=== PATIENT | male | born 1955 | race Caucasian/White ===

== ENCOUNTER 2019-02-25 10:50 | Day surgery (SDC) | payer OTHER ==
[~2019-02-25] VITALS: Ht 177.8 cm; Wt 130.0 kg
[~2019-02-25 10:50] MED LIST: ALBU90OI61 INH; ASPI81CH PO; ATOR20 PO; Acetaminophen325 M1 PO; BASAGLAR K100 UNIT/1 SC; BUDE6HFA INH; CALCIUM CARBON260 MG PO; COMBIVENT RESPIM4 GM INH; DERMAFUNGAL TOP; ELIQUIS5 MG PO; ENOX40I SC; FLUC100 PO; FURO40 PO; GAVILAX17 GM PO; HYDPAM50 PO; HYDR1TAB94 PO; Humulin N100 UNIT/1 SC; LEVSOD50 PO; Loratadine10 MG PO; MAGOXI400 PO; METO25ER PO; MULTI-VITAMIN-1 EACH PO; Novolog100 UNIT/2 INJ; POTCHL20ER PO; PREG50 PO; SIME80CH PO; Senna8.6 MG PO; Spironolactone100 MG PO; TAMS.4ER PO; TIOT18 INH; VITAMIN B PO; Ventolin Soln3 ML INH; Vitamin D2000 UNIT PO
== END 2019-02-25 13:37 | disposition home or self-care (01) ==
LOC: ORSCSDS 10:50
PROVIDERS: Internal Medicine Gastroenterology
PROC: 0W3P8ZZ Control Bleeding in Gastrointestinal Tract, Via Natural or Artificial Opening Endoscopic (ICD-10-PCS; principal; 2019-02-25 12:45)
DX: D62 Acute posthemorrhagic anemia (principal); K92.1 Melena; Q27.33 Arteriovenous malformation of digestive system vessel; I10 Essential (primary) hypertension; J44.9 Chronic obstructive pulmonary disease, unspecified; I48.91 Unspecified atrial fibrillation; Z79.01 Long term (current) use of anticoagulants; G47.33 Obstructive sleep apnea (adult) (pediatric); Z87.891 Personal history of nicotine dependence; E11.9 Type 2 diabetes mellitus without complications; K21.9 Gastro-esophageal reflux disease without esophagitis; Z99.81 Dependence on supplemental oxygen; E66.01 Morbid (severe) obesity due to excess calories; Z68.41 Body mass index [BMI] 40.0-44.9, adult; Z79.899 Other long term (current) drug therapy
CPT/HCPCS: 82947; J2704; J7120

== ENCOUNTER 2022-06-09 08:42 | Day surgery (SDC) | payer OTHER ==
[~2022-06-09] VITALS: Ht 177.8 cm; Wt 108.7 kg
[2022-06-09] MEDS ORDERED: TAMS.4ER (09:12)
[2022-06-09] MEDS ORDERED: METF500 (09:12)
[2022-06-09] MEDS ORDERED: FERSU90EL (09:12)
[2022-06-09] MEDS ORDERED: ALOGLIPTIN6.25 M1 (09:13)
[2022-06-09] MEDS ORDERED: METO25ER (09:13)
[2022-06-09] MEDS ORDERED: LORA1SY (09:13)
== END 2022-06-09 11:11 | disposition home or self-care (01) ==
LOC: ORSCSDS 08:42
PROVIDERS: Internal Medicine Gastroenterology
PROC: 0D5A8ZZ Destruction of Jejunum, Via Natural or Artificial Opening Endoscopic (ICD-10-PCS; principal; 2022-06-09 10:00)
PROC: 0DB78ZX Excision of Stomach, Pylorus, Via Natural or Artificial Opening Endoscopic, Diagnostic (ICD-10-PCS; principal; 2022-06-09 10:00)
DX: D50.9 Iron deficiency anemia, unspecified (principal); K29.70 Gastritis, unspecified, without bleeding; K31.819 Angiodysplasia of stomach and duodenum without bleeding; K74.60 Unspecified cirrhosis of liver; K44.9 Diaphragmatic hernia without obstruction or gangrene; I48.91 Unspecified atrial fibrillation; Z79.01 Long term (current) use of anticoagulants; I50.9 Heart failure, unspecified; Z95.0 Presence of cardiac pacemaker; J44.9 Chronic obstructive pulmonary disease, unspecified; G47.33 Obstructive sleep apnea (adult) (pediatric); E11.22 Type 2 diabetes mellitus with diabetic chronic kidney disease; N18.30 Chronic kidney disease, stage 3 unspecified; Z79.4 Long term (current) use of insulin; Z79.84 Long term (current) use of oral hypoglycemic drugs; Z87.891 Personal history of nicotine dependence
CPT/HCPCS: 82947; 88305; 88341; 88342; J2704; J7120

== ENCOUNTER 2024-08-28 17:32 | Inpatient (IN) | payer OTHER ==
[~2024-08-28] VITALS: Ht 177.8 cm; Wt 113.7 kg
[~2024-08-28 17:32] MED LIST changes: +ALBU90OI INH; +ALOGLIPTIN6.25 M1 PO; -ATOR20 PO; +ATOR80 PO; +FERSU300 PO; +FERSU90EL; +FLUT1DIS5 INH; +INSULANI SC; +LEVSOD75 PO; +LORA10ER PO; +LORA1SY; +MECL25 PO; +METF500 PO; +MULTI-VITAMIN1 EAC2 PO; +NOVOLOG MI100 UNIT/2; +Vitamin D1000 UNI1 PO; -Vitamin D2000 UNIT PO
[2024-08-28] MEDS ORDERED: Ipratropium Bromide INH 0.02% 0.5 mg/2.5ML Vial INH SCH ×2 (18:25→23:40)
[2024-08-28] MEDS ORDERED: Albuterol 2.5 MG/3 ML VIAL INH SCH ×2 (18:25→23:40)
[2024-08-28] MEDS ORDERED: Bisacodyl 5 MG TabEC PO ONE (22:50)
[2024-08-28] MEDS ORDERED: Sod Phosphate/Sod Biphosphate 132 ML BTL PR ONE (22:50)
[2024-08-29] MEDS ORDERED: Ondansetron HCl 2 MG / ML 2ML Vial IV PRN (01:05)
[2024-08-29] MEDS ORDERED: Bisacodyl 10 MG Supp PR PRN (01:05)
[2024-08-29] MEDS ORDERED: Ipratropium/Albuterol SulF 2.5-0.5MG/3 ML Amp INH PRN (01:10)
[2024-08-29] MEDS ORDERED: NS 1,000 ML IV SCH (01:10)
[2024-08-29] MEDS ORDERED: Azithromycin 500 MG in NS 250 ML IV SCH (01:22)
[2024-08-29 02:16] LABS: Influenza A, PCR NEGATIVE (NEGATIVE); Influenza B, PCR NEGATIVE (NEGATIVE); Resp Syncytial Virus, PCR NEGATIVE (NEGATIVE); SARS-Cov-2 (COVID-19) PCR, MMC NEGATIVE (NEGATIVE)
[2024-08-29] MEDS ORDERED: Polyethylene Glycol 3350 17 gm PO PRN (07:20)
[2024-08-29] MEDS ORDERED: Insulin Human Lispro 100 Units/ML 3ML Syringe SC SCH (07:30)
[2024-08-29 08:30] LABS: BASOPHILS ABSOLUTE AUTO 0.04 K/mm3 (0.00-0.23); BASOPHILS PERCENT AUTO 1 % (0-2); EOSINOPHILS ABSOLUTE AUTO 0.05 K/mm3 (0.00-0.68); EOSINOPHILS PERCENT AUTO 1 % (0-6); Hemoglobin 11.1 g/dL (13.5-17.5); IMMATURE GRAN ABSOLUTE AUTO 0.04 K/mm3 (0.00-0.10); IMMATURE GRAN PERCENT AUTO 1 % (0-1); LYMPHOCYTES ABSOLUTE AUTO 1.18 K/mm3 (0.84-5.20); LYMPHOCYTES PERCENT AUTO 15 % (21-46); MONOCYTES ABSOLUTE AUTO 0.59 K/mm3 (0.16-1.47); MONOCYTES PERCENT AUTO 8 % (4-13); Mean Corpuscular HGB 29.8 pg (26.0-34.0); Mean Corpuscular HGB Conc 33.6 g/dL (31.5-36.5); Mean Corpuscular Volume 89 fL (80-100); Mean Platelet Volume 9.9 fL (9.1-12.4); NEUTROPHILS PERCENT AUTO 75 % (41-73); Platelet Count 274 K/mm3 (150-400); RDW Coefficient Variation 14.6 % (11.7-14.2); Red Blood Cell Count 3.72 M/mm3 (4.30-5.90)
[2024-08-29 08:35] LABS: Albumin/Globulin Ratio 0.9 (0.8-1.8); Bilirubin, Total 0.4 mg/dL (0.1-1.0); Calcium, Blood 8.4 mg/dL (8.5-10.1); Creatinine, Blood 2.47 mg/dL (0.60-1.20); Globulin, Blood 3.5 g/dL (2.2-4.0); Potassium, Blood 4.4 mmol/L (3.5-5.5); Total Protein, Blood 6.5 g/dL (6.4-8.2)
[2024-08-29] MEDS ORDERED: Docusate Sodium 100 MG Cap PO SCH (09:00)
[2024-08-29] MEDS ORDERED: Enoxaparin 40 MG/0.4 ML SYR SC SCH (09:00)
[2024-08-29] MEDS ORDERED: Sennosides 8.6 MG Tab PO SCH (09:00)
[2024-08-29 15:11] VITALS: BP 138/70
[2024-08-29] MEDS ORDERED: ALBU2.5V5 INH (16:00)
[2024-08-29] MEDS ORDERED: Bumetanide2 MG (16:01)
[2024-08-29] MEDS ORDERED: B-12500 MC2 PO (16:03)
[2024-08-29] MEDS ORDERED: JARDIANCE10 MG PO (16:05)
[2024-08-29] MEDS ORDERED: GUAI600T33 PO (16:07)
[2024-08-29] MEDS ORDERED: NARCAN4 M1 (16:12)
[2024-08-29] MEDS ORDERED: OZEMPIC2 MG/0.75 SQ (16:15)
[2024-08-29] MEDS ORDERED: Mometasone/Formoterol MDI 200/5 mcg 13 GM INH SCH (17:20)
[2024-08-29] MEDS ORDERED: Tiotropium Bromide 2.5 MCG/ACT MIST INHAL (10 ACT/4 GM) INH SCH (17:25)
--- NOTE | 2024-08-29 18:00 | NUR ---
ADMISSION AND SHIFT SUMMARY PATIENT ADMITTED TO MEDICAL FLOOR. ON ARRIVAL TO MEDICAL FLOOR PATIENT HAD A LARGE BM. PATIENT STATES AFTER THE BM HE HAS BEEN ABLE TO BREATH BETTER. PATIENT UP TO BR WITH MINIMAL ASSIST. GROIN NOTED TO BE A LITTLE EXCORIATED AND MOIST. ADMISSION PROCESS COMPLETED. MEDICATIONS REVIEWED WITH PATIENT. PATIENT NOT TAKING SOME MEDS LISTED ON [facility]. PATIENT STATES THAT HE HAS BEEN HAVING ISSUES WITH BEING DIZZY AND FALLING AT HOME. REQUESTED PATIENT TO CALL FOR ASSISTANCE WHEN AMBULATING.
[2024-08-29 20:28] VITALS: BP 135/68
[2024-08-29] MEDS ORDERED: Tamsulosin HCl 0.4 MG Cap PO SCH (21:00)
[2024-08-29] MEDS ORDERED: Insulin Glargine-Yfgn 100 Unit/mL 3 ML SYR SC SCH (21:00)
[2024-08-30 02:44] VITALS: BP 112/57
--- NOTE | 2024-08-30 05:48 | NUR ---
Pt A&O x4, VS varible with soft B/P, and tele afib in 90's. Pt with order to check orthostatic b/p every day, which dropped significantely (more then 20%). Pt with CPAP on through night with O2 2L bleed in. uses CPAP at home. BG 209 at HS only recieving his long acting insulin. Pt is easily agitated and I did ask lab to return at around breakfast. I&O WNL, up to BR with cane and supervision only, denies dizziness.
[2024-08-30] MEDS ORDERED: Levothyroxine Sodium 0.075 MG Tab PO SCH (06:00)
[2024-08-30 07:40] VITALS: BP 122/71
[2024-08-30 08:01] LABS: Base Excess Venous 1.2 mmol/L; Bicarbonate Venous 25.9 mmol/L (24.0-30.0); PCO2 Venous 30.8 mmHg (38-42); pH Blood Venous 7.51 (7.34-7.37)
[2024-08-30 08:19] LABS: Hematocrit 33.4 % (37.0-53.0); Hemoglobin 11.1 g/dL (13.5-17.5); Mean Corpuscular HGB Conc 33.2 g/dL (31.5-36.5); Mean Corpuscular Volume 90 fL (80-100); Mean Platelet Volume 9.9 fL (9.1-12.4); Platelet Count 272 K/mm3 (150-400); RDW Coefficient Variation 14.5 % (11.7-14.2); RDW Standard Deviation 47.6 fL (35.1-46.3); White Blood Cell Count 7.26 K/mm3 (4.00-11.30)
[2024-08-30] MEDS ORDERED: Empagliflozin 10 MG TAB PO SCH (09:00)
[2024-08-30] MEDS ORDERED: Cholecalciferol 1000 Unit Tablet (=25MCG) PO SCH (09:00)
[2024-08-30 09:03] LABS: Albumin, Blood 2.9 g/dL (3.4-5.0); Anion Gap 11 mmol/L (3-11); Blood Urea Nitrogen 36 mg/dL (8-24); Bun/Creatinine Ratio 18.2 (12.0-20.0); CO2, Blood 23 mmol/L (21-32); Calcium, Blood 8.5 mg/dL (8.5-10.1); Chloride, Blood 104 mmol/L (98-108); Creatinine, Blood 1.98 mg/dL (0.60-1.20); Glomerular Filtration Rate 35 (60-); Glucose, Blood 139 mg/dL (70-99); Magnesium, Blood 3.4 mg/dL (1.6-2.4); Phosphorus, Blood 3.1 mg/dL (2.5-4.9); Potassium, Blood 4.2 mmol/L (3.5-5.5); Sodium, Blood 134 mmol/L (136-145); Thyroxine (T4) 5.9 ug/dL (4.5-12.1)
--- NOTE | 2024-08-30 14:04 | NUR ---
NOTE NOTICED PT TAKES ELIQUIS AT HOME FOR AFIB. ELIQUIS NOT IN [facility]. CALLED DR. AMADOR TO CLARIFY IF HE WANTS PT TO RESUME ELIQUIS HOME MED. DR. AMADOR SAID HE WILL START ELIQUIS TOMORROW AND D/C LOVENOX.
[2024-08-30 16:09] VITALS: BP 117/78
--- NOTE | 2024-08-30 18:03 | NUR ---
SHIFT SUMMARY PT A&OX4. PT ADMITTED DUE TO COPD WITH EXAC. PT REPORTS SOME LOWER BACK PAIN. DENIES NEED FOR MEDICATION FOR PAIN. PT ON TELE. PT HAS CONT. PULSE OX, PT SPO2 IS 96%. BED IN LOWEST POSITION, CALLS APPROPRIATE, CALL LIGHT IN REACH. VSS. PT HAS ACHS ORDERS. PT REPORTS SOME DIZZINESS ON AMBULATION, KNOWS TO CALL TO [facility]. PT EATS ADEQUATE. PT REPORTS HAVING BM TODAY. PT ON ROOM AIR.
[2024-08-30 19:50] VITALS: BP 117/68
[2024-08-31] VITALS (8 sets, daily range): BP systolic 96–137; BP diastolic 63–96
--- NOTE | 2024-08-31 06:05 | NUR ---
SHIFT SUMMARY - NO ACUTE CHANGES THROUGHOUT THIS SHIFT. PT CONTINUES ON RA. PT HAS A 2L OXYGEN BLEED IN TO CPAP - HE WORE HIS CPAP FOR APPX 3-4 HOURS LAST NOC. PT DID HAVE A BM YESTERDAY (NOT CHARTED) AND REPORTS IT "WAS SO/SO IN SIZE." TELE IN PLACE - NSR WITH A 1ST DEGREE BLOCK. PT UP WITH A SBA TO BRP. CALL LIGHT WITHIN REACH. BED IN LOW POSITION. FLUIDS AT BEDSIDE.
[2024-08-31 07:22] LABS: Albumin, Blood 2.7 g/dL (3.4-5.0); Anion Gap 12 mmol/L (3-11); Blood Urea Nitrogen 34 mg/dL (8-24); Bun/Creatinine Ratio 17.8 (12.0-20.0); CO2, Blood 22 mmol/L (21-32); Calcium, Blood 8.2 mg/dL (8.5-10.1); Chloride, Blood 103 mmol/L (98-108); Creatinine, Blood 1.91 mg/dL (0.60-1.20); Glomerular Filtration Rate 37 (60-); Glucose, Blood 130 mg/dL (70-99); Magnesium, Blood 2.6 mg/dL (1.6-2.4); Potassium, Blood 4.1 mmol/L (3.5-5.5); Sodium, Blood 133 mmol/L (136-145)
[2024-08-31] MEDS ORDERED: Apixaban 5 MG Tab PO SCH (09:00)
--- NOTE | 2024-08-31 09:22 | NUR ---
NOTE PT MAGNESIUM IS 2.6. PT HAD BM YESTERDAY. REPORTED TO PAUL AMADOR. [employer]ER TOOK ORTHOSTATIC VITALS THIS AM. REPORTED RESULTS TO DR. AMADOR. DURING THE STANDING ORTHO'S PT WAS TACHYPNIC AND HAD "SOME DIZZINESS" PER PT. AFTER A FEW MINUTES PT FELT DIZZINESS RESOLVE, AND PT IS NOTICEABLY SOB. NO NEW ORDERS AT THIS TIME.
[2024-08-31] MEDS ORDERED: Midodrine 2.5 MG Tab PO SCH ×2 (13:00→18:00)
[2024-08-31] MEDS ORDERED: Acetaminophen 500 MG Tab PO PRN (15:15)
[2024-08-31] MEDS ORDERED: TraMADol HCl 50 MG Tab PO PRN (15:15)
--- NOTE | 2024-08-31 19:37 | NUR ---
SHIFT SUMMARY PT A&OX4. PT ADMITTED DUE TO COPD WITH EXAC. PT REPORTS SOME LOWER BACK PAIN. DR. AMADOR ORDERED TYLENOL FOR PAIN. PT REPORTED SOME IMPROVEMENT. PT ON TELE. PT IS SBA, STATES GETS DIZZY AT TIMES WITH AMBULATION. PT ON ROOM AIR. PT ON CONT. PULSE OX SPO2 IS 95%. BED IN LOWEST POSITION, CALLS APPROPRIATE, CALL LIGHT IN REACH. PT HAS ACHS ORDERS, NEEDED INSULIN ONLY AT LUNCH TIME, PT HAD BM TODAY.
[2024-09-01] VITALS (7 sets, daily range): BP systolic 110–141; BP diastolic 57–86
--- NOTE | 2024-09-01 05:55 | NUR ---
SHIFT SUMMARY PATIENT IS ALERT AND ORIENTED. PATIENT HAS HAD NO ACUTE EVENTS THIS SHIFT. VITAL SIGNS REVIEWED. PATIENT HAS BEEN ON TELE WITH NO INCIDENTS. PATIENT HAS NO COMPLAINTS OF PAIN, NAUSEA, SOB OR VOMITTING. PATIENT WAS ADMITTED WITH COPD AND PATIENT HAS BEEN ON RA SATTING ABOVE 95 PERCENT. BED IN LOCKED AND LOWEST POSITION. CALL LIGHT IN PLACE. WILL MONITOR UNTIL SHIFT CHANGE.
--- NOTE | 2024-09-01 18:21 | NUR ---
SUMMARY PT IS ALERT AND ORIENTED X4. SOB WITH AMBULATION, NO ACUTE CHANGES THIS SHIFT. CPAP WITH 2L BLEED IN NOC. PT STILL EXPERIENCE ORTHOSTATIC HYPOTENSION. PT/OT WORKED WITH PT TODAY. PT DID HAVE LARGE SOFT BM TODAY, REPORTS CONCERN FOR CONSTIPATION ON DISCHARGE. CALLS APPROPRIATELY. INDEPENDENT IN THE ROOM. PT VERBALIZED UNDERSTANDING THAT HE WILL CALL IF HE FEELS DIZZY AND WILL NOT WALK WITHOUT ASSISTANCE.
[2024-09-02] VITALS (7 sets, daily range): BP systolic 99–132; BP diastolic 68–80
--- NOTE | 2024-09-02 03:10 | NUR ---
SHIFT SUMMARY PATIENT IS ALERT AND ORIENTED. PATIENT HAS HAD NO ACUTE EVENTS THIS SHIFT. VITAL SIGNS REVIEWED. PATIENT HAS HAD NO COMPLAINTS OF SOB, NAUSEA OR VOMITTING THIS SHIFT. PATIENT HAS COMPLAINED OF PAIN. PATIENT HAS BEEN INDEP. THIS SHIFT. PATIENT HAS BEEN SLEEPING MOST OF SHIFT WITH NO COMPLAINTS. IV FLUIDS INFUSED ORDERED. BED IN LOCKED AND LOWEST POSITION. CALL LIGHT IN PLACE.
[2024-09-02 06:02] LABS: Hematocrit 33.1 % (37.0-53.0); Hemoglobin 10.7 g/dL (13.5-17.5); Mean Corpuscular HGB 29.2 pg (26.0-34.0); Mean Corpuscular HGB Conc 32.3 g/dL (31.5-36.5); Mean Corpuscular Volume 90 fL (80-100); Mean Platelet Volume 9.6 fL (9.1-12.4); Platelet Count 249 K/mm3 (150-400); RDW Coefficient Variation 14.4 % (11.7-14.2); RDW Standard Deviation 47.8 fL (35.1-46.3); Red Blood Cell Count 3.67 M/mm3 (4.30-5.90); White Blood Cell Count 7.53 K/mm3 (4.00-11.30)
[2024-09-02 06:37] LABS: Albumin, Blood 2.8 g/dL (3.4-5.0); Anion Gap 10 mmol/L (3-11); Blood Urea Nitrogen 30 mg/dL (8-24); Bun/Creatinine Ratio 16.3 (12.0-20.0); CO2, Blood 23 mmol/L (21-32); Calcium, Blood 8.6 mg/dL (8.5-10.1); Chloride, Blood 107 mmol/L (98-108); Creatinine, Blood 1.84 mg/dL (0.60-1.20); Glomerular Filtration Rate 39 (60-); Glucose, Blood 128 mg/dL (70-99); Magnesium, Blood 2.3 mg/dL (1.6-2.4); Potassium, Blood 4.4 mmol/L (3.5-5.5); Sodium, Blood 136 mmol/L (136-145)
--- NOTE | 2024-09-02 18:12 | NUR ---
SHIFT SUMMARY PATIENT RECEIVED ALL 3 DOSES OF MIDODRINE TODAY. ORTHOSTATIC VITALS COLLECTED TWICE TODAY PER DR. CHEUNG ORDERS WITH NO SIGNIGICANT DROP THIS AFTERNOON FROM LYING TO STANDING. PATIENT STANDBY TO BATHROOM WITH CANE. NO TELE EVENTS. CALLS APPROPRIATELY. PRN TYLENOL GIVEN TWICE TODAY FOR CHRONIC BACK PAIN, PT REPROTS HISTORY OF LUMBAR SPINAL FRACTURE.
[2024-09-03 03:38] VITALS: BP 108/46
--- NOTE | 2024-09-03 04:47 | NUR ---
SHIFT SUMMARY: PT AOX4 IND IN THE ROOM. ORTHOSTATIC HYPOTENSION, BUT PT DANGLES BEFORE TRANSFERRING. SATTING WELL AND STABLE TELE MONITORING. PT ABLE TO MAKE NEEDS KNOWN AND CALLS APPROPRIATELY. NO ACUTE EVENTS OVERNIGHT. PT IN BED SLEEPING, BED IN LOWEST POSITION, CALL LIGHT IN REACH. CONTINUING CARE.
[2024-09-03 06:03] LABS: Hematocrit 33.1 % (37.0-53.0); Hemoglobin 10.9 g/dL (13.5-17.5); Mean Corpuscular HGB 29.2 pg (26.0-34.0); Mean Corpuscular HGB Conc 32.9 g/dL (31.5-36.5); Mean Corpuscular Volume 89 fL (80-100); Mean Platelet Volume 9.9 fL (9.1-12.4); Platelet Count 265 K/mm3 (150-400); RDW Coefficient Variation 14.4 % (11.7-14.2); RDW Standard Deviation 46.4 fL (35.1-46.3); Red Blood Cell Count 3.73 M/mm3 (4.30-5.90); White Blood Cell Count 8.24 K/mm3 (4.00-11.30)
[2024-09-03 06:43] LABS: Albumin, Blood 2.7 g/dL (3.4-5.0); Anion Gap 12 mmol/L (3-11); Blood Urea Nitrogen 29 mg/dL (8-24); Bun/Creatinine Ratio 16.7 (12.0-20.0); CO2, Blood 20 mmol/L (21-32); Calcium, Blood 8.6 mg/dL (8.5-10.1); Chloride, Blood 108 mmol/L (98-108); Creatinine, Blood 1.74 mg/dL (0.60-1.20); Glomerular Filtration Rate 41 (60-); Glucose, Blood 93 mg/dL (70-99); Magnesium, Blood 2.5 mg/dL (1.6-2.4); Phosphorus, Blood 2.9 mg/dL (2.5-4.9); Potassium, Blood 4.7 mmol/L (3.5-5.5); Sodium, Blood 135 mmol/L (136-145)
[2024-09-03 07:49] VITALS: BP 104/64
[2024-09-03 07:50] VITALS: BP 126/62
[2024-09-03 07:51] VITALS: BP 109/63
[2024-09-03] MEDS ORDERED: Docusate Sodium/Senna 1 Tab PO SCH (11:00)
[2024-09-03] MEDS ORDERED: Polyethylene Glycol 3350 17 gm PO SCH (11:00)
[2024-09-03] MEDS ORDERED: MIDO5 PO (13:35)
--- NOTE | 2024-09-03 14:50 | NUR ---
PT DISCHARGED HOME WITH HOME HEALTH, PT C/O WITH CONSTIPATION, PT HAD XL BM TODAY. DISCHARGE INSTRUCTIONS DISCUSSED WITH PT. NO QUESTIONS OR CONCERNS AT DISCHARGE.
== END 2024-09-03 14:31 | disposition home health service (06) | DRG 189 ==
LOC: ER 17:32 → ERHOLD 17:33 → MEDS 08-29 14:53
PROVIDERS: Internal Medicine; ADMIT Internal Medicine
DX: J96.01 Acute respiratory failure with hypoxia (principal); J44.1 Chronic obstructive pulmonary disease with (acute) exacerbation; I50.32 Chronic diastolic (congestive) heart failure; I13.0 Hypertensive heart and chronic kidney disease with heart failure and stage 1 through stage 4 chronic kidney disease, or unspecified chronic kidney disease; E87.1 Hypo-osmolality and hyponatremia; K59.00 Constipation, unspecified; J96.02 Acute respiratory failure with hypercapnia; I48.91 Unspecified atrial fibrillation; E86.0 Dehydration; E03.9 Hypothyroidism, unspecified; G47.33 Obstructive sleep apnea (adult) (pediatric); N18.30 Chronic kidney disease, stage 3 unspecified; E11.22 Type 2 diabetes mellitus with diabetic chronic kidney disease; E55.9 Vitamin D deficiency, unspecified; E66.01 Morbid (severe) obesity due to excess calories; K76.0 Fatty (change of) liver, not elsewhere classified; D63.1 Anemia in chronic kidney disease; Z96.651 Presence of right artificial knee joint; Z96.89 Presence of other specified functional implants; I95.1 Orthostatic hypotension; Z79.899 Other long term (current) drug therapy; Z79.84 Long term (current) use of oral hypoglycemic drugs; Z79.4 Long term (current) use of insulin; Z79.01 Long term (current) use of anticoagulants; Z88.7 Allergy status to serum and vaccine; Z88.8 Allergy status to other drugs, medicaments and biological substances; Z68.36 Body mass index [BMI] 36.0-36.9, adult; Z87.891 Personal history of nicotine dependence; Z79.51 Long term (current) use of inhaled steroids
CPT/HCPCS: 0241U; 36415; 71045; 74177; 80053; 80069; 82803; 82947; 83735; 83880; 84436; 84443; 84484; 85025; 85027; 93005; 93010; 93306; 94640; 94644; 94645; 94660; 94664; 94760; 94762; 96365; 96372; 97110; 97162; 97530; 99285-25; A9270; G0378; J0456; J1650; J1815; J7030; J7050; Q9967

== ENCOUNTER 2024-09-06 11:32 | Emergency (ER) | payer MEDICARE ==
[~2024-09-06] VITALS: Ht 177.8 cm; Wt 111.0 kg
[~2024-09-06 11:32] MED LIST changes: +ALBU2.5V5 INH; +B-12500 MC2 PO; +Bumetanide2 MG; +GUAI600T33 PO; +JARDIANCE10 MG PO; +MIDO5 PO; +NARCAN4 M1; +OZEMPIC2 MG/0.75 SQ
[2024-09-06 12:02] VITALS: BP 124/66
[2024-09-06] MEDS ORDERED: Metoclopramide HCl 10 MG Tab PO ONE (12:55)
[2024-09-06] MEDS ORDERED: Polyethylene Glycol 3350 17 gm PO ONE (13:00)
[2024-09-06] MEDS ORDERED: Acetaminophen 325 MG TABLET PO ONE (13:05)
[2024-09-06] MEDS ORDERED: Bisacodyl 10 MG Supp PR ONE (13:20)
== END 2024-09-06 14:02 | disposition home or self-care (01) ==
LOC: ER 11:32
DX: K59.00 Constipation, unspecified (principal); I48.91 Unspecified atrial fibrillation; I11.0 Hypertensive heart disease with heart failure; I50.31 Acute diastolic (congestive) heart failure; E11.9 Type 2 diabetes mellitus without complications; J44.9 Chronic obstructive pulmonary disease, unspecified; G47.33 Obstructive sleep apnea (adult) (pediatric); E66.01 Morbid (severe) obesity due to excess calories; Z87.891 Personal history of nicotine dependence; Z79.4 Long term (current) use of insulin; Z79.51 Long term (current) use of inhaled steroids; Z79.84 Long term (current) use of oral hypoglycemic drugs; Z79.899 Other long term (current) drug therapy; Z88.7 Allergy status to serum and vaccine; Z88.8 Allergy status to other drugs, medicaments and biological substances
CPT/HCPCS: 74018; 99283-25; A9270